=== PATIENT | male | born 1955 | race African-American/Black ===

== ENCOUNTER 2019-03-08 15:55 | Emergency (ER) | payer SELFPAY ==
[~2019-03-08] VITALS: Ht 185.4 cm; Wt 90.0 kg
[~2019-03-08 15:55] MED LIST: FLONASE NASAL50 MCG; MUCINEX600 MG PO; NAPROSYN375 MG PO; NAPROSYN500 MG OR; NO HOME MEDS; PENICILLN VK250 MG PO; PERCOCET 5/321 COMBO PO; TOBRAMYCIN0.3 % OD
[2019-03-08] MEDS ORDERED: CEPHALEXIN500 M1 PO (16:26)
[2019-03-08 16:36] VITALS: BP 139/92
== END 2019-03-08 16:34 | disposition home or self-care (01) | DRG 605 ==
LOC: ED 15:55
PROC: 0HQFXZZ Repair Right Hand Skin, External Approach (ICD-10-PCS; principal; 2019-03-08)
DX: S61.212A Laceration without foreign body of right middle finger without damage to nail, initial encounter (principal); W23.0XXA Caught, crushed, jammed, or pinched between moving objects, initial encounter; Y93.E2 Activity, laundry; Y92.009 Unspecified place in unspecified non-institutional (private) residence as the place of occurrence of the external cause

== ENCOUNTER 2020-05-10 08:28 | Emergency (ER) | payer SELFPAY ==
[~2020-05-10] VITALS: Ht 185.4 cm; Wt 85.0 kg
[~2020-05-10 08:28] MED LIST changes: +CEPHALEXIN500 M1 PO
[2020-05-10] MEDS ORDERED: ALLERGY RELF10 M3 PO (09:21)
[2020-05-10 09:40] VITALS: BP 173/74
== END 2020-05-10 09:43 | disposition home or self-care (01) | DRG 556 ==
LOC: ED 08:28
DX: M25.572 Pain in left ankle and joints of left foot (principal); R05 Cough

== ENCOUNTER 2020-08-30 11:26 | Emergency (ER) | payer OTHER ==
[~2020-08-30] VITALS: Ht 185.4 cm; Wt 72.7 kg
[~2020-08-30 11:26] MED LIST changes: +ALLERGY RELF10 M3 PO
[2020-08-30] MEDS ORDERED: IBUPROFEN600 MG PO (13:58)
[2020-08-30 14:28] VITALS: BP 150/93
== END 2020-08-30 14:28 | disposition home or self-care (01) | DRG 552 ==
LOC: ED 11:26
DX: S16.1XXA Strain of muscle, fascia and tendon at neck level, initial encounter (principal); V43.62XA Car passenger injured in collision with other type car in traffic accident, initial encounter

== ENCOUNTER 2021-04-16 08:16 | Emergency (ER) | payer SELFPAY ==
[~2021-04-16] VITALS: Ht 185.4 cm; Wt 75.0 kg
[~2021-04-16 08:16] MED LIST changes: +IBUPROFEN600 MG PO
[2021-04-16] MEDS ORDERED: KEFLEX500 MG PO (09:23)
[2021-04-16] MEDS ORDERED: BACTRIM DS1 TAB PO (09:23)
[2021-04-16] MEDS ORDERED: EPSOM SAL1 PO (09:24)
[2021-04-16 09:55] VITALS: BP 140/85
== END 2021-04-16 10:01 | disposition home or self-care (01) | DRG 603 ==
LOC: ED 08:16
DX: L03.312 Cellulitis of back [any part except buttock and flank] (principal)

== ENCOUNTER 2024-06-11 09:19 | Emergency (ER) | payer MEDICARE ==
[2024-06-11] VITALS (8 sets, daily range): BP systolic 133–162; BP diastolic 80–99
[~2024-06-11] VITALS: Ht 185.4 cm; Wt 73.0 kg
[~2024-06-11 09:19] MED LIST changes: +BACTRIM DS1 TAB PO; +EPSOM SAL1 PO; +KEFLEX500 MG PO
[2024-06-11] MEDS ORDERED: KETOROLAC TROMETHAMINE 30 MG/ML SDV IV ONE (09:35)
[2024-06-11 09:48] LABS: BASO% 0.2 % (0-3); EOS% 1.4 % (0-8); HEMATOCRIT 42.4 % (39.0-50.0); HEMOGLOBIN 14.1 g/dl (14.0-18.0); IMMATURE GRANULOCYTES 0.2 % (0.0-5.0); LYMPH% 20.8 % (15-41); MEAN CELL VOLUME 86.9 fL CALC (80.0-100.0); MEAN CORPUSCULAR HGB 28.9 pG CALC (26.0-32.0); MEAN CORPUSCULAR HGB CONC 33.3 g/dL CAL (32.0-36.0); MONO% 15.9 % (2-13); NEUT# 3.01 thou/uL (1.82-7.42); NEUT% 61.5 % (42-76); RED BLOOD COUNT 4.88 mill/uL (4.70-6.10); RED CELL DISTRI WIDTH 13.1 % (11.5-15.5)
[2024-06-11 10:17] LABS: CREATININE 1.1 mg/dL (0.7-1.3); POTASSIUM 3.8 mmol/l (3.5-5.1)
[2024-06-11] MEDS ORDERED: NAPROXEN500 MG PO (11:25)
== END 2024-06-11 11:41 | disposition home or self-care (01) ==
LOC: ED 09:19
PROVIDERS: Family Medicine
PROC: 0R9 Upper Joints, Drainage (ICD-10-PCS; principal; 2024-06-11)
DX: M25.442 Effusion, left hand (principal)
CPT/HCPCS: Q9967